=== PATIENT | male | born 1940 | race Caucasian/White ===

== ENCOUNTER 2018-05-05 11:25 | Emergency (ER) | payer MEDICARE, OTHER ==
[~2018-05-05] VITALS: Ht 172.7 cm; Wt 78.9 kg
[~2018-05-05 11:25] MED LIST: AMIO200; B Complex1 EAC2 PO; BUDE6HFA; CHOL10002 PO; FERR325 PO; FLUT.05NI; FURO40 PO; Flonase 0.05% N16 GM; INSLIS75I; Klor-Con 1010 MEQ PO; LOSA50; METO25ER; METO25ER PO; MULVIT PO; OXYACE5T PO; PRAV20 PO; WARF5; ZOLP10 PO
[2018-05-05 13:02] LABS: BASOPHILS ABSOLUTE AUTO 0.07 K/mm3 (0.00-0.23); BASOPHILS PERCENT AUTO 1 % (0-2); EOSINOPHILS ABSOLUTE AUTO 0.11 K/mm3 (0.00-0.68); EOSINOPHILS PERCENT AUTO 2 % (0-6); Hematocrit 42.8 % (37.0-53.0); Hemoglobin 13.7 g/dL (13.5-17.5); IMMATURE GRAN ABSOLUTE AUTO 0.01 K/mm3 (0.00-0.10); IMMATURE GRAN PERCENT AUTO 0 % (0-1); LYMPHOCYTES ABSOLUTE AUTO 1.09 K/mm3 (0.84-5.20); LYMPHOCYTES PERCENT AUTO 18 % (21-46); MONOCYTES ABSOLUTE AUTO 0.56 K/mm3 (0.16-1.47); MONOCYTES PERCENT AUTO 9 % (4-13); Mean Corpuscular HGB 27.1 pg (26.0-34.0); Mean Corpuscular Volume 85 fL (80-100); Mean Platelet Volume 10.8 fL (9.1-12.4); NEUTROPHILS ABSOLUTE AUTO 4.37 K/mm3 (1.96-9.15); NEUTROPHILS PERCENT AUTO 70 % (41-73); Platelet Count 304 K/mm3 (150-400); RDW Coefficient Variation 15.1 % (11.7-14.2); RDW Standard Deviation 46.2 fL (35.1-46.3); Red Blood Cell Count 5.05 M/mm3 (4.30-5.90); White Blood Cell Count 6.21 K/mm3 (4.00-11.30)
[2018-05-05 13:16] LABS: Prothrombin Time Results 39.2 Sec (9.7-11.5)
[2018-05-05 13:21] LABS: Albumin, Blood 4.1 g/dL (3.4-5.0); Albumin/Globulin Ratio 1.3 (0.8-1.8); Bilirubin, Total 1.6 mg/dL (0.1-1.0); Bun/Creatinine Ratio 22.1 (12.0-20.0); Calcium, Blood 9.1 mg/dL (8.5-10.1); Creatinine, Blood 1.45 mg/dL (0.60-1.20); Globulin, Blood 3.2 g/dL (2.2-4.0); Potassium, Blood 4.9 mmol/L (3.5-5.5); Total Protein, Blood 7.3 g/dL (6.4-8.2); Troponin I 0.055 ng/mL (0.000-0.040)
[2018-05-05 14:12] LABS: International Normalized Ratio 4.12
[2018-05-05] MEDS ORDERED: METO25ER PO (15:02)
[2018-05-05] MEDS ORDERED: BUME2 PO (15:02)
== END 2018-05-05 15:42 | disposition home or self-care (01) ==
LOC: ER 11:25
PROVIDERS: Emergency Medicine
DX: R10.9 Unspecified abdominal pain (principal); I10 Essential (primary) hypertension; Z79.899 Other long term (current) drug therapy; Z79.01 Long term (current) use of anticoagulants; Z87.891 Personal history of nicotine dependence
CPT/HCPCS: 36415; 71046; 80053; 83690; 83880; 84484; 85025; 85610; 93005; 93010; 96374; 99284; J1940

== ENCOUNTER 2018-07-07 07:23 | Day surgery (SDC) | payer MEDICARE, OTHER ==
[~2018-07-07] VITALS: Ht 172.7 cm; Wt 77.0 kg
[~2018-07-07 07:23] MED LIST changes: +B Complex #11 EACH PO; +BUME2 PO; +DIGOX125 MCG PO; +Ferrous Sulfat325 M2 PO; +VITAMIN D32000 UNIT PO
[2018-07-07] MEDS ORDERED: SPIR25 (08:22)
[2018-07-07] MEDS ORDERED: CLOP75 PO (09:35)
[2018-07-07] MEDS ORDERED: PANT40 PO (09:36)
== END 2018-07-07 22:47 | disposition home or self-care (01) ==
LOC: MHTC 07:23
DX: R29.818 Other symptoms and signs involving the nervous system (principal); I70.0 Atherosclerosis of aorta; H34.9 Unspecified retinal vascular occlusion; I51.3 Intracardiac thrombosis, not elsewhere classified; Z95.3 Presence of xenogenic heart valve
CPT/HCPCS: 93312; 93325; J7120

== ENCOUNTER → 2018-12-18 | Outpatient (CLI) | payer MEDICARE, OTHER ==
[~2018-12-18] MED LIST changes: +CLOP75 PO; +PANT40 PO; +SPIR25
[2018-12-18 09:32] LABS: BASOPHILS ABSOLUTE AUTO 0.08 K/mm3 (0.00-0.23); BASOPHILS PERCENT AUTO 1 % (0-2); EOSINOPHILS ABSOLUTE AUTO 0.18 K/mm3 (0.00-0.68); EOSINOPHILS PERCENT AUTO 2 % (0-6); Hematocrit 40.8 % (37.0-53.0); Hemoglobin 13.5 g/dL (13.5-17.5); IMMATURE GRAN ABSOLUTE AUTO 0.04 K/mm3 (0.00-0.10); IMMATURE GRAN PERCENT AUTO 1 % (0-1); LYMPHOCYTES ABSOLUTE AUTO 1.13 K/mm3 (0.84-5.20); LYMPHOCYTES PERCENT AUTO 14 % (21-46); MONOCYTES ABSOLUTE AUTO 0.71 K/mm3 (0.16-1.47); MONOCYTES PERCENT AUTO 9 % (4-13); Mean Corpuscular HGB 27.7 pg (26.0-34.0); Mean Corpuscular HGB Conc 33.1 g/dL (31.5-36.5); Mean Corpuscular Volume 84 fL (80-100); Mean Platelet Volume 9.8 fL (9.1-12.4); NEUTROPHILS ABSOLUTE AUTO 5.98 K/mm3 (1.96-9.15); NEUTROPHILS PERCENT AUTO 74 % (41-73); Platelet Count 314 K/mm3 (150-400); RDW Coefficient Variation 13.4 % (11.7-14.2); RDW Standard Deviation 41.1 fL (35.1-46.3); Red Blood Cell Count 4.88 M/mm3 (4.30-5.90); White Blood Cell Count 8.12 K/mm3 (4.00-11.30)
[2018-12-18 09:44] LABS: Albumin, Blood 3.9 g/dL (3.4-5.0); Bilirubin, Total 1.6 mg/dL (0.1-1.0); Bun/Creatinine Ratio 25.2 (12.0-20.0); Calcium, Blood 8.9 mg/dL (8.5-10.1); Creatinine, Blood 2.02 mg/dL (0.60-1.20); Globulin, Blood 4.1 g/dL (2.2-4.0); Potassium, Blood 4.4 mmol/L (3.5-5.5); Uric Acid, Blood 11.3 mg/dL (3.5-7.2)
== END | disposition home or self-care (01) ==
LOC: LAB SHORT 09:21 → LAB EV 09:21
PROVIDERS: General Practice
DX: M13.80 Other specified arthritis, unspecified site (principal)
CPT/HCPCS: 80053; 84550; 85025; 85651; 86140

== ENCOUNTER 2019-10-16 12:07 | Day surgery (SDC) | payer MEDICARE, OTHER ==
[~2019-10-16] VITALS: Ht 167.6 cm; Wt 73.0 kg
[~2019-10-16 12:07] MED LIST changes: +ALLO100; +OXYC10ER
--- NOTE | 2019-10-16 13:52 | NUR ---
10/16/19 2303 Briana Rousseau (Peggy PT UPDATED REGARDING DELAY. SPOUSE AT BEDSIDE, CALL LIGHT WITHIN REACH. PT DENIES NEEDS AT THIS TIME.
== END 2019-10-16 17:03 | disposition home or self-care (01) ==
LOC: ORSCSDS 12:07
PROVIDERS: Orthopaedic Surgery
PROC: 01N40ZZ Release Ulnar Nerve, Open Approach (ICD-10-PCS; principal; 2019-10-16 13:30)
DX: G56.21 Lesion of ulnar nerve, right upper limb (principal); G47.33 Obstructive sleep apnea (adult) (pediatric); E78.5 Hyperlipidemia, unspecified; I10 Essential (primary) hypertension; I48.91 Unspecified atrial fibrillation; D68.59 Other primary thrombophilia; Z79.01 Long term (current) use of anticoagulants; Z79.899 Other long term (current) drug therapy; Z87.891 Personal history of nicotine dependence
CPT/HCPCS: J0171; J0690; J1100; J2250; J2405; J2704; J3010; J7120

== ENCOUNTER 2021-01-13 09:29 | Emergency (ER) | payer MEDICARE, OTHER ==
[~2021-01-13] VITALS: Ht 167.6 cm; Wt 72.6 kg
[~2021-01-13 09:29] MED LIST changes: -ALLO100; +ALLO100 PO; -DIGOX125 MCG PO; +WARF2.5 PO; -WARF5
[2021-01-13 10:16] LABS: BASOPHILS PERCENT AUTO 1 % (0-2); EOSINOPHILS ABSOLUTE AUTO 0.07 K/mm3 (0.00-0.68); EOSINOPHILS PERCENT AUTO 1 % (0-6); Hemoglobin 13.8 g/dL (13.5-17.5); IMMATURE GRAN ABSOLUTE AUTO 0.02 K/mm3 (0.00-0.10); IMMATURE GRAN PERCENT AUTO 0 % (0-1); LYMPHOCYTES ABSOLUTE AUTO 1.11 K/mm3 (0.84-5.20); LYMPHOCYTES PERCENT AUTO 14 % (21-46); MONOCYTES ABSOLUTE AUTO 0.85 K/mm3 (0.16-1.47); MONOCYTES PERCENT AUTO 11 % (4-13); Mean Corpuscular HGB 29.5 pg (26.0-34.0); Mean Corpuscular HGB Conc 33.7 g/dL (31.5-36.5); Mean Corpuscular Volume 88 fL (80-100); NEUTROPHILS ABSOLUTE AUTO 5.78 K/mm3 (1.96-9.15); NEUTROPHILS PERCENT AUTO 73 % (41-73); Platelet Count 301 K/mm3 (150-400); RDW Coefficient Variation 15.9 % (11.7-14.2); RDW Standard Deviation 49.1 fL (35.1-46.3); Red Blood Cell Count 4.68 M/mm3 (4.30-5.90); White Blood Cell Count 7.93 K/mm3 (4.00-11.30)
[2021-01-13 10:29] LABS: Albumin, Blood 3.9 g/dL (3.4-5.0); Albumin/Globulin Ratio 1.1 (0.8-1.8); Bilirubin, Total 2.7 mg/dL (0.1-1.0); Bun/Creatinine Ratio 36.9 (12.0-20.0); Calcium, Blood 9.4 mg/dL (8.5-10.1); Creatinine, Blood 2.03 mg/dL (0.60-1.20); Globulin, Blood 3.6 g/dL (2.2-4.0); Potassium, Blood 4.6 mmol/L (3.5-5.5); Prothrombin Time Results 20.6 Sec (9.7-11.5); Total Protein, Blood 7.5 g/dL (6.4-8.2)
== END 2021-01-13 13:00 | disposition home or self-care (01) ==
LOC: ER 09:29
PROVIDERS: Physician Assistant
DX: S41.112A Laceration without foreign body of left upper arm, initial encounter (principal); S51.812A Laceration without foreign body of left forearm, initial encounter; I10 Essential (primary) hypertension; I48.91 Unspecified atrial fibrillation; K43.9 Ventral hernia without obstruction or gangrene; M25.512 Pain in left shoulder; Z79.01 Long term (current) use of anticoagulants; Z79.899 Other long term (current) drug therapy; Z88.8 Allergy status to other drugs, medicaments and biological substances; Z87.891 Personal history of nicotine dependence; W18.30XA Fall on same level, unspecified, initial encounter
CPT/HCPCS: 36415; 70450; 73030; 74176; 80053; 85025; 85610; 85730; 93005; 93010; 96374; 99285-25; A9270; J2270

== ENCOUNTER 2021-04-09 11:10 | Observation (INO) | payer MEDICARE, OTHER ==
[~2021-04-09] VITALS: Ht 177.8 cm; Wt 78.0 kg
[2021-04-09 11:44] LABS: BASOPHILS ABSOLUTE AUTO 0.11 K/mm3 (0.00-0.23); BASOPHILS PERCENT AUTO 2 % (0-2); EOSINOPHILS ABSOLUTE AUTO 0.18 K/mm3 (0.00-0.68); EOSINOPHILS PERCENT AUTO 2 % (0-6); Hematocrit 40.8 % (37.0-53.0); Hemoglobin 13.7 g/dL (13.5-17.5); IMMATURE GRAN ABSOLUTE AUTO 0.03 K/mm3 (0.00-0.10); IMMATURE GRAN PERCENT AUTO 0 % (0-1); LYMPHOCYTES ABSOLUTE AUTO 1.24 K/mm3 (0.84-5.20); LYMPHOCYTES PERCENT AUTO 17 % (21-46); MONOCYTES ABSOLUTE AUTO 0.53 K/mm3 (0.16-1.47); MONOCYTES PERCENT AUTO 7 % (4-13); Mean Corpuscular HGB 28.9 pg (26.0-34.0); Mean Corpuscular HGB Conc 33.6 g/dL (31.5-36.5); Mean Corpuscular Volume 86 fL (80-100); Mean Platelet Volume 11.1 fL (9.1-12.4); NEUTROPHILS ABSOLUTE AUTO 5.27 K/mm3 (1.96-9.15); NEUTROPHILS PERCENT AUTO 72 % (41-73); Platelet Count 330 K/mm3 (150-400); RDW Coefficient Variation 15.2 % (11.7-14.2); RDW Standard Deviation 46.8 fL (35.1-46.3); Red Blood Cell Count 4.74 M/mm3 (4.30-5.90); White Blood Cell Count 7.36 K/mm3 (4.00-11.30)
[2021-04-09 12:06] LABS: Albumin, Blood 3.7 g/dL (3.4-5.0); Albumin/Globulin Ratio 0.9 (0.8-1.8); Bilirubin, Total 1.7 mg/dL (0.1-1.0); Bun/Creatinine Ratio 45.8 (12.0-20.0); Calcium, Blood 9.2 mg/dL (8.5-10.1); Creatinine, Blood 2.73 mg/dL (0.60-1.20); Globulin, Blood 3.9 g/dL (2.2-4.0); Potassium, Blood 5.5 mmol/L (3.5-5.5); Total Protein, Blood 7.6 g/dL (6.4-8.2)
[2021-04-09 12:20] LABS: International Normalized Ratio 1.93; Prothrombin Time Results 20.1 Sec (9.7-11.5)
[2021-04-09] MEDS ORDERED: OXYC10TA19 PO (12:34)
[2021-04-09] MEDS ORDERED: ZOLPIDEM TART6.25 MG PO (12:34)
[2021-04-09] MEDS ORDERED: SPIRONOLACTONE25 MG PO (12:35)
[2021-04-09] MEDS ORDERED: BUME1 PO (12:36)
[2021-04-09] MEDS ORDERED: SPIR25 PO (15:11)
--- NOTE | 2021-04-09 16:41 | NUR ---
SHIFT SUMMARY PT ADMITTED TO UNIT FROM ED AT 1455, RECEIVED REPORT FROM FABIAN IRBY. PT AAOX4, ABLE TO MAKE NEEDS KNOWN, PLEASANT AND COOPERATIVE TO CARE. NO C/O CP, SOB, OR N&V. PT IS VERY [place]. PT's PRESENT DURING ADMISSION PROCESS. PT IS A 1 PERSON ASSIST WITH A FWW. CONTINENT OF B&B. PT HAS SKIN TEARS TO R&L FOREARM WELL L SHOULDER. DRESSING TO AFFECTED AREAS PRESENT FROM ED, ALTHOUGH DRESSING TO L SHOULDER IS SATURATED AND WAS CHANGED BY THIS RN, PHOTO OF AFFECTED AREA IN CHART. PT REFUSED TO CHANGE R&L FOREARM DRESSINGS D/T PT C/O BURNING PAIN TO AFFECTED AREAS DURING DRESSING CHANGES. WILL TAKE PHOTOS OF R&L FOREARM ON NEXT DRESSING CHANGE. CONSENT TO TAKE PHOTOS OF L SHOULDER WOUND SIGNED BY PATIENT, PLACED IN CHART. PT CURRENTLY CALM AND COMFORTABLE IN ROOM WATCHING TV. BED AT LOWEST POSITION. CALL LIGHT WITHIN REACH.
--- NOTE | 2021-04-10 05:05 | NUR ---
SUMMARY PT PAIN TX PER EMAR W/RELIEF. PT HAD SLEPT T/O SHIFT. PT DRESSING KEPT C/D/I. PT HAS BEEN NPO SINCE 0000HRS. CALL LIGHT IN REACH AND BED ALARM ON.
[2021-04-10 05:30] LABS: International Normalized Ratio 1.84; Prothrombin Time Results 19.2 Sec (9.7-11.5)
[2021-04-10] MEDS ORDERED: DOCU100 PO (13:27)
--- NOTE | 2021-04-10 14:52 | NUR ---
Patient is sitting on a chair and alert. Patient is [place] and so communication is a bit strained. After I visit with patient for a few moments his spouse, Tatiana arrives and she can help him hear because she is not waering a mask in the rm (patient reads lips). Patient repeats often that he is ready when God calls him home. Tatiana mentions that he is tired and frustrated that he is so limited in his activity. I provide companionship, therapeutic listening, pastoral job counselor and prayer. Patient and Tatiana show signs of increased hope and purpose.
--- NOTE | 2021-04-10 15:42 | NUR ---
DISCHARGED HOME. PRESENT. TEACHBACK METHOD UTILIZED. PATIENT AND VERBALIZED UNDERSTANDING OF THE INSTRUCTIONS AND ORDERS. DR. ARREDONDO NOTIFIED THAT PARACENTESIS SITE HAS A LARGE AMOUNT OF SEROUS DRAINAGE PRESENT: NO NEW ORDERS AND OK TO D/C HOME. ALL PERSONAL BELONGINGS IN PATIENT POSSESSION AT TIME OF DISCHARGE.
== END 2021-04-10 15:43 | disposition home health service (06) ==
LOC: ER 11:10 → MEDS 11:11 → ENPENDDIS 04-10 12:21 → MEDS 04-10 15:43
PROVIDERS: Emergency Medicine; Family Medicine; ADMIT Internal Medicine
DX: S41.112A Laceration without foreign body of left upper arm, initial encounter (principal); S00.83XA Contusion of other part of head, initial encounter; I48.91 Unspecified atrial fibrillation; R63.4 Abnormal weight loss; N17.9 Acute kidney failure, unspecified; I12.0 Hypertensive chronic kidney disease with stage 5 chronic kidney disease or end stage renal disease; N18.4 Chronic kidney disease, stage 4 (severe); R18.8 Other ascites; W18.30XA Fall on same level, unspecified, initial encounter; W22.8XXA Striking against or struck by other objects, initial encounter; Y92.009 Unspecified place in unspecified non-institutional (private) residence as the place of occurrence of the external cause; Z79.01 Long term (current) use of anticoagulants; Z91.81 History of falling; Z88.8 Allergy status to other drugs, medicaments and biological substances; Z95.2 Presence of prosthetic heart valve; Z95.0 Presence of cardiac pacemaker; Z87.891 Personal history of nicotine dependence; Z68.24 Body mass index [BMI] 24.0-24.9, adult
CPT/HCPCS: 36415; 49083; 70450; 73020; 73070; 80053; 85025; 85610; 85730; 93005; 93010; 96374; 96375; 97110; 97162; 99285-25; A9270; G0378; J1170; J2405; J3010

== ENCOUNTER → 2021-04-26 | Outpatient (CLI) | payer MEDICARE, OTHER ==
[~2021-04-26] MED LIST changes: +BUME1 PO; +DIGOX125 MCG PO; +DOCU100 PO; +EUTHYROX50 MCG PO; +IPRATROPIUM BRO30 ML; +METOPROLOL SUCC25 MG PO; +OXYC10TA19 PO; +SPIR25 PO; +SPIRONOLACTONE25 MG PO; +TRIAMCINOLONE ACETONIDE 0.5%; +ZOLPIDEM TART6.25 MG PO
[2021-04-26 16:54] LABS: Albumin, Blood 3.1 g/dL (3.4-5.0); Albumin/Globulin Ratio 0.9 (0.8-1.8); Bilirubin, Total 1.4 mg/dL (0.1-1.0); Bun/Creatinine Ratio 35.7 (12.0-20.0); Calcium, Blood 8.7 mg/dL (8.5-10.1); Creatinine, Blood 3.05 mg/dL (0.60-1.20); Free Thyroxine 0.51 ng/dL (0.70-1.60); Globulin, Blood 3.3 g/dL (2.2-4.0); Potassium, Blood 4.7 mmol/L (3.5-5.5); Total Protein, Blood 6.4 g/dL (6.4-8.2)
[2021-04-26 17:00] LABS: BASOPHILS PERCENT AUTO 1 % (0-2); EOSINOPHILS ABSOLUTE AUTO 0.14 K/mm3 (0.00-0.68); EOSINOPHILS PERCENT AUTO 2 % (0-6); Hematocrit 37.4 % (37.0-53.0); Hemoglobin 12.5 g/dL (13.5-17.5); IMMATURE GRAN ABSOLUTE AUTO 0.03 K/mm3 (0.00-0.10); IMMATURE GRAN PERCENT AUTO 0 % (0-1); LYMPHOCYTES ABSOLUTE AUTO 0.82 K/mm3 (0.84-5.20); LYMPHOCYTES PERCENT AUTO 11 % (21-46); MONOCYTES ABSOLUTE AUTO 0.64 K/mm3 (0.16-1.47); MONOCYTES PERCENT AUTO 8 % (4-13); Mean Corpuscular HGB 28.7 pg (26.0-34.0); Mean Corpuscular HGB Conc 33.4 g/dL (31.5-36.5); Mean Corpuscular Volume 86 fL (80-100); Mean Platelet Volume 10.8 fL (9.1-12.4); NEUTROPHILS ABSOLUTE AUTO 5.91 K/mm3 (1.96-9.15); NEUTROPHILS PERCENT AUTO 77 % (41-73); Platelet Count 362 K/mm3 (150-400); RDW Coefficient Variation 15.9 % (11.7-14.2); RDW Standard Deviation 48.5 fL (35.1-46.3); Red Blood Cell Count 4.36 M/mm3 (4.30-5.90); White Blood Cell Count 7.64 K/mm3 (4.00-11.30)
[2021-04-26 17:02] LABS: Thyroid Stimulating Hormone 52.1 uIU/mL (0.360-4.800); Triiodothyronine, Free 1.24 pg/mL (2.18-3.98)
== END ==
LOC: LAB SHORT 15:01 → LAB 15:01
PROVIDERS: Physician Assistant
DX: I48.91 Unspecified atrial fibrillation (principal); N18.4 Chronic kidney disease, stage 4 (severe); Z95.2 Presence of prosthetic heart valve; Z88.8 Allergy status to other drugs, medicaments and biological substances
CPT/HCPCS: 80053; 84439; 84443; 84481; 85025

== ENCOUNTER 2021-04-28 12:48 | Inpatient (IN) | payer MEDICARE, OTHER ==
[~2021-04-28] VITALS: Ht 167.6 cm; Wt 77.8 kg
[~2021-04-28 12:48] MED LIST changes: -DIGOX125 MCG PO; -EUTHYROX50 MCG PO; -IPRATROPIUM BRO30 ML; -METOPROLOL SUCC25 MG PO; -TRIAMCINOLONE ACETONIDE 0.5%
[2021-04-28 13:40] LABS: BASOPHILS PERCENT AUTO 1 % (0-2); EOSINOPHILS ABSOLUTE AUTO 0.16 K/mm3 (0.00-0.68); EOSINOPHILS PERCENT AUTO 2 % (0-6); Hematocrit 39.9 % (37.0-53.0); Hemoglobin 13.2 g/dL (13.5-17.5); IMMATURE GRAN ABSOLUTE AUTO 0.03 K/mm3 (0.00-0.10); IMMATURE GRAN PERCENT AUTO 0 % (0-1); LYMPHOCYTES ABSOLUTE AUTO 0.88 K/mm3 (0.84-5.20); LYMPHOCYTES PERCENT AUTO 11 % (21-46); MONOCYTES ABSOLUTE AUTO 0.59 K/mm3 (0.16-1.47); MONOCYTES PERCENT AUTO 7 % (4-13); Mean Corpuscular HGB 28.4 pg (26.0-34.0); Mean Corpuscular HGB Conc 33.1 g/dL (31.5-36.5); Mean Corpuscular Volume 86 fL (80-100); Mean Platelet Volume 10.7 fL (9.1-12.4); NEUTROPHILS ABSOLUTE AUTO 6.32 K/mm3 (1.96-9.15); NEUTROPHILS PERCENT AUTO 78 % (41-73); Platelet Count 368 K/mm3 (150-400); RDW Coefficient Variation 16.2 % (11.7-14.2); RDW Standard Deviation 49.6 fL (35.1-46.3); Red Blood Cell Count 4.64 M/mm3 (4.30-5.90); White Blood Cell Count 8.08 K/mm3 (4.00-11.30)
[2021-04-28 13:48] LABS: Albumin, Blood 3.3 g/dL (3.4-5.0); Albumin/Globulin Ratio 0.9 (0.8-1.8); Bilirubin, Total 1.4 mg/dL (0.1-1.0); Bun/Creatinine Ratio 39.8 (12.0-20.0); Calcium, Blood 8.9 mg/dL (8.5-10.1); Creatinine, Blood 2.59 mg/dL (0.60-1.20); Globulin, Blood 3.5 g/dL (2.2-4.0); Potassium, Blood 4.8 mmol/L (3.5-5.5); Total Protein, Blood 6.8 g/dL (6.4-8.2)
[2021-04-28 13:57] LABS: Troponin I 0.204 ng/mL (0.000-0.040)
[2021-04-28 14:51] LABS: International Normalized Ratio 1.33; Prothrombin Time Results 14.1 Sec (9.7-11.5)
[2021-04-28] MEDS ORDERED: IPRATROPIUM BRO30 ML (15:17)
[2021-04-28] MEDS ORDERED: TRIAMCINOLONE ACETONIDE 0.5% (15:19)
[2021-04-28] MEDS ORDERED: DIGOX125 MCG PO (15:20)
[2021-04-28] MEDS ORDERED: METOPROLOL SUCC25 MG PO (15:22)
[2021-04-28 18:17] LABS: Digoxin (Lanoxin) 1.05 ug/mL (0.80-2.00)
--- NOTE | 2021-04-28 18:33 | NUR ---
RECIEVED REPORT FROM SHARRON LEWIS RN, @ [phone]. PATIENT TO BE TRANSFERED TO ROOM 333.
[2021-04-29 01:39] LABS: BASOPHILS ABSOLUTE AUTO 0.08 K/mm3 (0.00-0.23); BASOPHILS PERCENT AUTO 1 % (0-2); EOSINOPHILS ABSOLUTE AUTO 0.16 K/mm3 (0.00-0.68); EOSINOPHILS PERCENT AUTO 2 % (0-6); Hematocrit 36.3 % (37.0-53.0); Hemoglobin 12.3 g/dL (13.5-17.5); IMMATURE GRAN ABSOLUTE AUTO 0.03 K/mm3 (0.00-0.10); IMMATURE GRAN PERCENT AUTO 0 % (0-1); LYMPHOCYTES ABSOLUTE AUTO 0.69 K/mm3 (0.84-5.20); LYMPHOCYTES PERCENT AUTO 9 % (21-46); MONOCYTES ABSOLUTE AUTO 0.62 K/mm3 (0.16-1.47); MONOCYTES PERCENT AUTO 8 % (4-13); Mean Corpuscular HGB 29.1 pg (26.0-34.0); Mean Corpuscular HGB Conc 33.9 g/dL (31.5-36.5); Mean Corpuscular Volume 86 fL (80-100); Mean Platelet Volume 10.4 fL (9.1-12.4); NEUTROPHILS PERCENT AUTO 80 % (41-73); Platelet Count 319 K/mm3 (150-400); RDW Coefficient Variation 16.1 % (11.7-14.2); RDW Standard Deviation 48.6 fL (35.1-46.3); Red Blood Cell Count 4.22 M/mm3 (4.30-5.90); White Blood Cell Count 7.88 K/mm3 (4.00-11.30)
[2021-04-29 01:53] LABS: International Normalized Ratio 1.36; Prothrombin Time Results 14.4 Sec (9.7-11.5)
[2021-04-29 01:59] LABS: Bun/Creatinine Ratio 41.2 (12.0-20.0); Calcium, Blood 8.5 mg/dL (8.5-10.1); Creatinine, Blood 2.5 mg/dL (0.60-1.20); Potassium, Blood 4.3 mmol/L (3.5-5.5)
--- NOTE | 2021-04-29 04:25 | NUR ---
SHIFT SUMMARY- PT. NEW ADMIT FROM ED. A&OX3, FORGETFUL AT TIMES, AND VERY [place]. PT. PLEASANT AND COOPERATIVE WITH CARE. BUE AND L SHOULDER/UPPER ARM WOUNDS (PICS IN CHART). PERFORMED DRESSING CHANGE TO YULISSA FOREARMS AND SHOULDER. APPLIED PETROLEUM GAUZE PREVIOUSLY DRESSED, COVERED W/NON-ADHESIVE GAUZE, AND WRAPPED IN KERLEX. PT. TOLERATED WELL. HAD COMPLAINTS OF PAIN TO BUE, MEDICATED PER EMAR PRIOR TO DRESSING CHANGE. PT. ABLE TO AMBULATE TO BATHROOM W/SBA AND WALKER, URINAL AT BEDSIDE PRN. PT. SLEPT T/O THE NIGHT, NO APPARENT DISTRESS NOTED. VSS. CALL LIGHT WITHIN REACH, SIDE RAILS UPX2, AND BED ALARM ON FOR SAFETY. WILL CONT TO MONITOR.
--- NOTE | 2021-04-29 16:29 | NUR ---
Echocardiogram completed.
--- NOTE | 2021-04-29 16:44 | NUR ---
SHIFT SUMMARY PT AOX4; [place]. PT MEDICATED FOR PAIN X1, AND CAN RECEIVE ANOTHER DOSE OF PAIN MEDS TONIGHT WHICH HE USUALLY TAKES AT HOME. PT IS NOW 0N 1500 ML FLUID RESTRICTION AND STRICT I'S&O. PT HAS MULTIPLE SKIN TEARS ON BUA WITH DRESSING INTACT. PT CAME BY AND UPDATED HER ABOUT THE PARACENTESIS THAT WAS NOT DONE BECAUSE OF THE WARFARIN THAT WAS GIVEN LAST NIGHT. DR HANY AND NO ADDITIONAL ORDER, HELD WARFARIN TODAY PER . PT WILL NEED A DAILY STANDING WEIGHT. BED ALAM IS ON AND CALL JACOB OLMEDO
[2021-04-30 05:22] LABS: International Normalized Ratio 1.38; Prothrombin Time Results 14.6 Sec (9.7-11.5)
--- NOTE | 2021-04-30 07:05 | NUR ---
SHIFT SUMMARY PT IS AN 81 Y/O MALE, ADMITTED FOR ACUTE ON CHRONIC CHF. HE IS A&O X 2, FORGETFUL AT TIMES. 1PA TO THE BATHROOM. PT C/O CONSTANT PAIN IN HIS ARMS AND ABD, MEDICATED WITH PRN OXYCODONE AND TYLENOL. NO C/O NAUSEA OR SOB. VITAL SIGNS STABLE. PT WAS AWAKE FOR MOST OF THE NIGHT EVEN AFTER MEDICATED WITH AMBIEN. NO ACUTE CHANGES IN PT CONDITION NOTED. REPORT GIVEN TO ONCOMING RN.
[2021-04-30 11:58] LABS: Bun/Creatinine Ratio 40.9 (12.0-20.0); Calcium, Blood 8.7 mg/dL (8.5-10.1); Creatinine, Blood 2.3 mg/dL (0.60-1.20); Potassium, Blood 4.6 mmol/L (3.5-5.5)
--- NOTE | 2021-04-30 16:57 | NUR ---
SHIFT SUMMARY PT AOX3; FORGETFUL AT TIMES AND DOES NOT USE CALL LIGHT. VERY HIGH RISK FOR FALL SO BED ALARM IS ON. PT VERY [place]. PT MEDICATED FOR PAINX2. PT DRESSING ON BUA CHANGED TODAY. PT IS ON TELE PACED AND DENIES CP OR SOB. DC'D COUMADIN PER DR FOR THE UPCOMING PROCEDURE ON SATURDAY (PARACENTESIS). BED IS IN THE LOWEST POSITION AND CALL LIGHT WITHIN REACH
[2021-04-30 19:01] LABS: Source, Urine Voided
[2021-04-30 19:05] LABS: Appearance, Urine Clear (Clear); Bilirubin, Urine Neg (Neg); Blood, Urine Neg (Neg); Color, Urine Yellow (P-Yellow); Glucose Qualitative, Urine Neg (Neg); Ketones, Urine Neg (Neg); Leukocyte Esterase, Urine Neg (Neg); Nitrite, Urine Neg (Neg); Protein, Urine Neg (Neg); Specific Gravity, Urine 1.005 (1.003-1.022); Urobilinogen, Urine NORM (Normal)
[2021-04-30 19:23] LABS: Creatinine, Urine Random 25.1 mg/dL (27.00-270.00); Protein, Urine Random 6.9 mg/dL (0.0-11.9); Protein/Creat Ratio, Ur Random 0.3
[2021-05-01 05:42] LABS: International Normalized Ratio 1.32
[2021-05-01 05:56] LABS: Bun/Creatinine Ratio 42.3 (12.0-20.0); Calcium, Blood 8.7 mg/dL (8.5-10.1); Creatinine, Blood 2.22 mg/dL (0.60-1.20); Potassium, Blood 4.8 mmol/L (3.5-5.5)
--- NOTE | 2021-05-01 06:53 | NUR ---
SHIFT SUMMARY PT IS AN 81 Y/O MALE, ADMITTED FOR ACUTE ON CHRONIC CHF. HE IS A&O X 3, FORGETFUL AT TIMES, VERY [place]. PT WAS MEDICATED FOR BUE PAIN WITH PRN OXYCODONE AT HS. NO C/O ACUTE SOB OR NAUSEA. VITAL SIGNS STABLE. PT SLEPT WELL THROUGH THE NIGHT. NO ACUTE CHANGES IN PT CONDITION NOTED. REPORT GIVEN TO ONCOMING RN.
[2021-05-02 05:26] LABS: International Normalized Ratio 1.27; Prothrombin Time Results 13.5 Sec (9.7-11.5)
[2021-05-02 06:03] LABS: Digoxin (Lanoxin) 0.77 ug/mL (0.80-2.00)
--- NOTE | 2021-05-02 06:26 | NUR ---
SHIFT SUMMARY PATIENT ALERT AND ORIENTED. MEDICATED PER EMAR FOR PAIN. NO COMPLAINT OF SHORTNESS OF BREATH OR CHEST PAIN. NO ACUTE ISSUES NOTED. IV PATENT AND FLUSHED. BED IN LOWEST POSITION WITH WHEELS LOCKED. CALL LIGHT WITHIN REACH. REPORT GIVEN TO ONCOMING RN.
[2021-05-02 08:06] LABS: Calcium, Blood 8.7 mg/dL (8.5-10.1); Creatinine, Blood 2.31 mg/dL (0.60-1.20); Potassium, Blood 4.9 mmol/L (3.5-5.5)
[2021-05-02] MEDS ORDERED: BUME2 PO (15:48)
[2021-05-02] MEDS ORDERED: EUTHYROX50 MCG PO (15:49)
== END 2021-05-02 16:41 | disposition home health service (06) | DRG 280 ==
LOC: ER 12:48 → MEDS 12:49
PROVIDERS: Emergency Medicine; Internal Medicine; Physician Assistant; ADMIT Family Medicine
DX: I13.0 Hypertensive heart and chronic kidney disease with heart failure and stage 1 through stage 4 chronic kidney disease, or unspecified chronic kidney disease (principal); I50.23 Acute on chronic systolic (congestive) heart failure; I21.A1 Myocardial infarction type 2; N17.9 Acute kidney failure, unspecified; N18.4 Chronic kidney disease, stage 4 (severe); R18.8 Other ascites; E87.1 Hypo-osmolality and hyponatremia; E78.5 Hyperlipidemia, unspecified; K74.60 Unspecified cirrhosis of liver; R79.1 Abnormal coagulation profile; E03.9 Hypothyroidism, unspecified; I48.91 Unspecified atrial fibrillation; D63.1 Anemia in chronic kidney disease; G47.33 Obstructive sleep apnea (adult) (pediatric); Z99.89 Dependence on other enabling machines and devices; Z95.0 Presence of cardiac pacemaker; Z98.890 Other specified postprocedural states; Z87.891 Personal history of nicotine dependence; Z88.8 Allergy status to other drugs, medicaments and biological substances; Z79.899 Other long term (current) drug therapy
CPT/HCPCS: 36415; 71046; 76705; 80048; 80053; 80162; 81003; 82570; 83605; 83690; 83880; 84156; 84484; 85025; 85610; 93005; 93010; 93306; 94760; 96374; 96376; 97110; 97116; 97162; 97166; 97530; 97535; 99285-25; A9270; G0378; J1940

== ENCOUNTER 2021-06-04 12:31 | Emergency (ER) | payer MEDICARE, OTHER ==
[~2021-06-04] VITALS: Ht 172.7 cm; Wt 72.6 kg
[~2021-06-04 12:31] MED LIST changes: -CEPH500 PO; -COLCHICINE0.6 MG PO; -ENTRESTO 24 MG1 EACH PO; -LANOXIN125 MCG PO; -MUPIROCIN15 GM TOP
[2021-06-04] MEDS ORDERED: CLOP75 PO (13:52)
[2021-06-04] MEDS ORDERED: LANOXIN125 MCG PO (13:52)
[2021-06-04] MEDS ORDERED: CEPH500 PO (13:52)
[2021-06-04] MEDS ORDERED: COLCHICINE0.6 MG PO (13:52)
[2021-06-04] MEDS ORDERED: ENTRESTO 24 MG1 EACH PO (13:53)
[2021-06-04] MEDS ORDERED: PANT40 PO (13:54)
[2021-06-04] MEDS ORDERED: MUPIROCIN15 GM TOP (13:56)
== END 2021-06-04 15:28 | disposition home or self-care (01) ==
LOC: ER 12:31
DX: R18.8 Other ascites (principal); R06.02 Shortness of breath; L97.919 Non-pressure chronic ulcer of unspecified part of right lower leg with unspecified severity; I10 Essential (primary) hypertension; Z87.891 Personal history of nicotine dependence
CPT/HCPCS: 49083; 93005; 93010; 99284-25; A9270

== ENCOUNTER → 2021-06-04 | Outpatient (CLI) | payer MEDICARE, OTHER ==
[~2021-06-04] MED LIST changes: +CEPH500 PO; +COLCHICINE0.6 MG PO; +DIGOX125 MCG PO; +ENTRESTO 24 MG1 EACH PO; +EUTHYROX50 MCG PO; +IPRATROPIUM BRO30 ML; +LANOXIN125 MCG PO; +METOPROLOL SUCC25 MG PO; +MUPIROCIN15 GM TOP; +TRIAMCINOLONE ACETONIDE 0.5%
[2021-06-04 11:11] LABS: BASOPHILS ABSOLUTE AUTO 0.08 K/mm3 (0.00-0.23); BASOPHILS PERCENT AUTO 1 % (0-2); EOSINOPHILS ABSOLUTE AUTO 0.08 K/mm3 (0.00-0.68); EOSINOPHILS PERCENT AUTO 1 % (0-6); Hematocrit 37.2 % (37.0-53.0); Hemoglobin 12.8 g/dL (13.5-17.5); IMMATURE GRAN ABSOLUTE AUTO 0.03 K/mm3 (0.00-0.10); IMMATURE GRAN PERCENT AUTO 1 % (0-1); LYMPHOCYTES ABSOLUTE AUTO 0.55 K/mm3 (0.84-5.20); LYMPHOCYTES PERCENT AUTO 8 % (21-46); MONOCYTES ABSOLUTE AUTO 0.47 K/mm3 (0.16-1.47); MONOCYTES PERCENT AUTO 7 % (4-13); Mean Corpuscular HGB 29.4 pg (26.0-34.0); Mean Corpuscular HGB Conc 34.4 g/dL (31.5-36.5); Mean Corpuscular Volume 86 fL (80-100); Mean Platelet Volume 10.8 fL (9.1-12.4); NEUTROPHILS ABSOLUTE AUTO 5.39 K/mm3 (1.96-9.15); NEUTROPHILS PERCENT AUTO 82 % (41-73); Platelet Count 304 K/mm3 (150-400); RDW Coefficient Variation 15.6 % (11.7-14.2); RDW Standard Deviation 48.2 fL (35.1-46.3); Red Blood Cell Count 4.35 M/mm3 (4.30-5.90)
[2021-06-04 11:29] LABS: Albumin, Blood 3.6 g/dL (3.4-5.0); Albumin/Globulin Ratio 1.1 (0.8-1.8); Bilirubin, Total 1.6 mg/dL (0.1-1.0); Bun/Creatinine Ratio 40.7 (12.0-20.0); Calcium, Blood 8.9 mg/dL (8.5-10.1); Creatinine, Blood 3.07 mg/dL (0.60-1.20); Globulin, Blood 3.4 g/dL (2.2-4.0); Potassium, Blood 4.9 mmol/L (3.5-5.5); Thyroid Stimulating Hormone 39.342 uIU/mL (0.360-4.800)
[2021-06-04 11:42] LABS: International Normalized Ratio 1.21; Prothrombin Time Results 12.9 Sec (9.7-11.5)
[2021-06-04 11:51] LABS: Free Thyroxine 0.93 ng/dL (0.70-1.60); Troponin I 0.145 ng/mL (0.000-0.040)
== END | disposition home or self-care (01) ==
LOC: LAB 11:00 → LAB SHORT 11:00
PROVIDERS: General Practice
DX: Z79.01 Long term (current) use of anticoagulants (principal); Z51.81 Encounter for therapeutic drug level monitoring; L03.115 Cellulitis of right lower limb; Z79.899 Other long term (current) drug therapy; Z95.2 Presence of prosthetic heart valve
CPT/HCPCS: 80053; 82150; 83880; 84439; 84443; 84484; 85025; 85379; 85610; 87070; 87075; 87077; 87147; 87186; 87205

== ENCOUNTER → 2021-07-11 | Outpatient (CLI) | payer MEDICARE, OTHER ==
[~2021-07-11] MED LIST changes: +CEPH500 PO; +COLCHICINE0.6 MG PO; +ENTRESTO 24 MG1 EACH PO; +LANOXIN125 MCG PO; +MUPIROCIN15 GM TOP
[2021-07-11 19:59] LABS: International Normalized Ratio 1.53; Prothrombin Time Results 16.1 Sec (9.7-11.5)
== END | disposition home or self-care (01) ==
LOC: LAB HH 15:25 → LAB SHORT 15:25
PROVIDERS: Internal Medicine Cardiovascular Disease
DX: Z79.01 Long term (current) use of anticoagulants (principal); Z51.81 Encounter for therapeutic drug level monitoring
CPT/HCPCS: 85610

== ENCOUNTER → 2021-07-17 | Outpatient (CLI) | payer MEDICARE, OTHER ==
[2021-07-17 18:56] LABS: International Normalized Ratio 1.51; Prothrombin Time Results 15.9 Sec (9.7-11.5)
== END | disposition home or self-care (01) ==
LOC: LAB 16:00 → LAB SHORT 16:00
PROVIDERS: Internal Medicine Cardiovascular Disease
DX: Z79.01 Long term (current) use of anticoagulants (principal); Z51.81 Encounter for therapeutic drug level monitoring
CPT/HCPCS: 85610

== ENCOUNTER 2021-07-29 09:46 | Inpatient (IN) | payer MEDICARE, OTHER ==
[~2021-07-29] VITALS: Ht 172.7 cm; Wt 78.5 kg
[2021-07-29] MEDS ORDERED: SILENOR6 MG (10:14)
[2021-07-29 10:22] LABS: BASOPHILS ABSOLUTE AUTO 0.07 K/mm3 (0.00-0.23); BASOPHILS PERCENT AUTO 1 % (0-2); EOSINOPHILS ABSOLUTE AUTO 0.12 K/mm3 (0.00-0.68); EOSINOPHILS PERCENT AUTO 2 % (0-6); Hematocrit 36.4 % (37.0-53.0); Hemoglobin 12.6 g/dL (13.5-17.5); IMMATURE GRAN ABSOLUTE AUTO 0.03 K/mm3 (0.00-0.10); IMMATURE GRAN PERCENT AUTO 1 % (0-1); LYMPHOCYTES ABSOLUTE AUTO 0.59 K/mm3 (0.84-5.20); LYMPHOCYTES PERCENT AUTO 10 % (21-46); MONOCYTES ABSOLUTE AUTO 0.45 K/mm3 (0.16-1.47); MONOCYTES PERCENT AUTO 8 % (4-13); Mean Corpuscular HGB 29.3 pg (26.0-34.0); Mean Corpuscular HGB Conc 34.6 g/dL (31.5-36.5); Mean Corpuscular Volume 85 fL (80-100); Mean Platelet Volume 10.4 fL (9.1-12.4); NEUTROPHILS ABSOLUTE AUTO 4.76 K/mm3 (1.96-9.15); NEUTROPHILS PERCENT AUTO 79 % (41-73); Platelet Count 275 K/mm3 (150-400); RDW Coefficient Variation 15.2 % (11.7-14.2); RDW Standard Deviation 46.3 fL (35.1-46.3); White Blood Cell Count 6.02 K/mm3 (4.00-11.30)
[2021-07-29 10:50] LABS: Albumin, Blood 2.9 g/dL (3.4-5.0); Albumin/Globulin Ratio 0.8 (0.8-1.8); Bilirubin, Total 1.4 mg/dL (0.1-1.0); Bun/Creatinine Ratio 39.9 (12.0-20.0); Calcium, Blood 8.8 mg/dL (8.5-10.1); Creatinine, Blood 2.88 mg/dL (0.60-1.20); Globulin, Blood 3.7 g/dL (2.2-4.0); Potassium, Blood 5.1 mmol/L (3.5-5.5); Total Protein, Blood 6.6 g/dL (6.4-8.2); Troponin I 0.168 ng/mL (0.000-0.040)
[2021-07-29 10:57] LABS: International Normalized Ratio 1.52; Prothrombin Time Results 15.5 Sec (9.7-11.5)
[2021-07-29 11:32] LABS: Digoxin (Lanoxin) 0.59 ug/mL (0.80-2.00)
[2021-07-29 12:27] LABS: Free Thyroxine 0.67 ng/dL (0.70-1.60); Triiodothyronine, Free 1.06 pg/mL (2.18-3.98)
[2021-07-29 13:42] LABS: SARS-Cov-2 (COVID-19) PCR, MMC NEGATIVE (NEGATIVE)
[2021-07-30 02:07] LABS: Hematocrit 34.1 % (37.0-53.0); Hemoglobin 11.7 g/dL (13.5-17.5); Mean Corpuscular HGB 29.1 pg (26.0-34.0); Mean Corpuscular HGB Conc 34.3 g/dL (31.5-36.5); Mean Corpuscular Volume 85 fL (80-100); Mean Platelet Volume 10.4 fL (9.1-12.4); Platelet Count 266 K/mm3 (150-400); RDW Coefficient Variation 15.1 % (11.7-14.2); RDW Standard Deviation 45.7 fL (35.1-46.3); Red Blood Cell Count 4.02 M/mm3 (4.30-5.90); White Blood Cell Count 5.12 K/mm3 (4.00-11.30)
[2021-07-30 02:21] LABS: International Normalized Ratio 1.53; Prothrombin Time Results 15.6 Sec (9.7-11.5)
[2021-07-30 02:32] LABS: Troponin I 0.178 ng/mL (0.000-0.040)
[2021-07-30 02:33] LABS: Bun/Creatinine Ratio 41.4 (12.0-20.0); Calcium, Blood 8.8 mg/dL (8.5-10.1); Creatinine, Blood 2.95 mg/dL (0.60-1.20); Potassium, Blood 5.2 mmol/L (3.5-5.5)
--- NOTE | 2021-07-30 06:13 | NUR ---
END OF SHIFT SUMMARY PATIENT AT THE BEGINNING OF THE SHIFT STATED HE NEEDED HIS PAIN PILL AND HIS SLEEP MED(AMBIEN). HE WAS GIVWN HIS PAIN MED AND THE PARTITION SETTER GOT AN ORDER FOR AMBIEN, SAME WAS ADMINISTERED PER EMAR. PATIENT WAS AGREEABLE TO CPAP WHICH WAS PLACED AFTER GOMEZ. NO OTHER COMPLAINT LODGED BY PATIENT
--- NOTE | 2021-07-30 12:22 | NUR ---
07/30/21 1222 Mimi Peralta NEEDED. SCDS NOT ON DUE TO MULTIPLE DRESSINGS ON LEGS.
--- NOTE | 2021-07-30 15:09 | NUR ---
PAIN Patient reports severe pain after pleur-x cath placed. Received V.O. for one time fentanyl 25 mcg iv. Emar updated.
--- NOTE | 2021-07-30 16:41 | NUR ---
Spent approximately 30 minutes talking to pt's , and she is extremely helpful with explaining pt's current situation and co-morbidities. She, along with pt are ready to return home with assistance from hospice. He has a pluerX drain placed. Unsure how far out the hospice agencies are, they both feel they could "do ok"for a few days while waiting for hospice. Will place the hospice referral now, hopeful it will get set up for the first part of the week.
--- NOTE | 2021-07-30 18:17 | NUR ---
Alert and oriented x3 , hard of hearing and able to make needs known. Continue on Tele monitor , pacing at 90s. Had pleurx catherter place for fluid draining , 2.5 L drained per report given by PCU nurse. Oxycodone and fentayl for pain management , it was effective . PleurX catheter site CDI, NO leaking noted. Abdomen distended and continue on Bumex , patient voided significant amount of yellow urine . Bilateral lower extremites dressing intact and dry. Continue to monitor.
[2021-07-31 05:14] LABS: International Normalized Ratio 1.4; Prothrombin Time Results 14.4 Sec (9.7-11.5)
--- NOTE | 2021-07-31 05:29 | NUR ---
ELECTRON GUN ASSEMBLER SUMMARY PATIENT WAS ON HIS CPAP AT AND HAD HIS PAIN PAIN MED FOR PAIN CONTROL. HIS VITALS ARE STABLE BUT HAD A LOW GRADE FEVER PER CHART. WILL CONTINUE TO MONITOR HIM.
[2021-07-31 08:41] LABS: Albumin, Blood 2.9 g/dL (3.4-5.0); Anion Gap 12 mmol/L (6-16); Blood Urea Nitrogen 117 mg/dL (8-24); Bun/Creatinine Ratio 44.7 (12.0-20.0); CO2, Blood 22 mmol/L (21-32); Calcium, Blood 8.8 mg/dL (8.5-10.1); Chloride, Blood 94 mmol/L (98-108); Creatinine, Blood 2.62 mg/dL (0.60-1.20); Glomerular Filtration Rate 24 (60-); Glucose, Blood 94 mg/dL (70-99); Phosphorus, Blood 4.8 mg/dL (2.5-4.9); Potassium, Blood 4.8 mmol/L (3.5-5.5); Sodium, Blood 128 mmol/L (136-145)
--- NOTE | 2021-07-31 18:48 | NUR ---
Alert and oriented x3 , up sitting on bedside for both meals and it was tolerated. One person assist with ADLS. Oxycodone 5 mg was given for pain management and it was effective. Bilateral LE dessing CDI. PleurX catheter site is clean , dry and intact. ABDOMEN is distended, continue on Bumex , voiding significant amount. Expected DC home tomorrow with comfort care/pallative care. continue to monitor.
[2021-08-01 05:12] LABS: International Normalized Ratio 1.36
--- NOTE | 2021-08-01 05:40 | NUR ---
SHIFT SUMMARY NO ACUTE CHANGES THIS SHIFT. AOX3. [place]. VSS. TELE PACED @73. DENIES N/V OR SOB. REPORTS PAIN IN BLE, MEDICATED 2X c 5MG OXYCODONE. PT RESTED WELL T/O NIGHT. BLE WOUNDS CLEANSED & NEW DRESSINGS APPLIED. ABD FIRM ROUND, DISTENDED, PLUREX DRAIN LOCATED R SIDE ABD. EDEMA T/O BODY. PLAN IS FOR PT TO DC HOME ON HOSPICE TODAY. CALL LIGHT IN REACH.
--- NOTE | 2021-08-01 09:26 | NUR ---
PT'S BIVICD SHOCK THERAPIES TURNED "OFF" PER DR SALGUERO R/T PT GOING HOME ON HOSPICE
--- NOTE | 2021-08-01 11:22 | NUR ---
Alert and oriented x3 , hard of hearing. One person assist with ADLS. c/o generalized pain , oxycodone 5 mg po was given and it was effective. Vital signs WNL. Patient defibrillator was DC prior to DC, Denies any SOB, headache , dizziness or palpitation. PleurX catheter in place, the site is [facility]. Patient Discharge home to hospice care and was instructed on DC instruction , she acknowledge instruction.
== END 2021-08-01 11:36 | disposition hospice, home (50) | DRG 280 ==
LOC: ER 09:46 → MEDS 14:25
PROVIDERS: Physician Assistant; Surgery; ADMIT Internal Medicine
PROC: 0W9G30Z Drainage of Peritoneal Cavity with Drainage Device, Percutaneous Approach (ICD-10-PCS; principal; 2021-07-30 12:00)
PROC: 4B02XSZ Measurement of Cardiac Pacemaker, External Approach (ICD-10-PCS; 2021-07-31)
DX: I13.0 Hypertensive heart and chronic kidney disease with heart failure and stage 1 through stage 4 chronic kidney disease, or unspecified chronic kidney disease (principal); I50.23 Acute on chronic systolic (congestive) heart failure; I21.A1 Myocardial infarction type 2; E43 Unspecified severe protein-calorie malnutrition; E87.1 Hypo-osmolality and hyponatremia; R18.8 Other ascites; N18.4 Chronic kidney disease, stage 4 (severe); J96.11 Chronic respiratory failure with hypoxia; L97.921 Non-pressure chronic ulcer of unspecified part of left lower leg limited to breakdown of skin; L97.911 Non-pressure chronic ulcer of unspecified part of right lower leg limited to breakdown of skin; I48.20 Chronic atrial fibrillation, unspecified; R64 Cachexia; I42.0 Dilated cardiomyopathy; K74.60 Unspecified cirrhosis of liver; Z68.26 Body mass index [BMI] 26.0-26.9, adult; G89.4 Chronic pain syndrome; Z66 Do not resuscitate; Z51.5 Encounter for palliative care; E03.9 Hypothyroidism, unspecified; R62.7 Adult failure to thrive; I95.9 Hypotension, unspecified; E78.5 Hyperlipidemia, unspecified; G47.33 Obstructive sleep apnea (adult) (pediatric); J44.9 Chronic obstructive pulmonary disease, unspecified; G25.81 Restless legs syndrome; G47.00 Insomnia, unspecified; K59.00 Constipation, unspecified; Z95.2 Presence of prosthetic heart valve; Z95.0 Presence of cardiac pacemaker; Z98.890 Other specified postprocedural states; Z88.8 Allergy status to other drugs, medicaments and biological substances; Z79.899 Other long term (current) drug therapy; Z79.01 Long term (current) use of anticoagulants
CPT/HCPCS: 36415; 71046; 76705; 80048; 80053; 80069; 80162; 83690; 83735; 83880; 84439; 84443; 84481; 84484; 85025; 85027; 85610; 93005; 93010; 93282; 94640; 94660; 94760; 96365; 96376; 97110; 97161; 97530; 99285-25; A9270; C1729; J0690; J2250; J2370; J2704; J3010; P9046; U0004